=== PATIENT | male | born 1990 | race Caucasian/White ===

== ENCOUNTER 2017-08-04 00:25 | Emergency (ER) | payer SELFPAY ==
[~2017-08-04] VITALS: Ht 172.7 cm; Wt 95.0 kg
[2017-08-04 06:16] VITALS: BP 120/86
== END 2017-08-04 06:19 | disposition home or self-care (01) ==
LOC: EDBD 00:25 → ER 00:25
DX: F10.129 Alcohol abuse with intoxication, unspecified (principal); Y90.9 Presence of alcohol in blood, level not specified; R03.0 Elevated blood-pressure reading, without diagnosis of hypertension
CPT/HCPCS: 99283; Z7610